=== PATIENT | female | born 1945 | race Caucasian/White ===

== ENCOUNTER 2016-10-20 15:30 | Emergency (ER) | payer OTHER, MEDICARE ==
[2016-10-20 15:44] VITALS: TEMP 98.2; O2SAT 92
--- NOTE | 2016-10-20 15:44 | EDPHY ---
H & P Stated Complaint: WEIRD FEELING IN R SIDE OF HEAD SENT FOR CAT SCAN Time Seen by Provider: 10/20/16 15:43 HPI/ROS: CHIEF COMPLAINT: Intermittent right occipital headache HISTORY OF PRESENT ILLNESS: The patient presents to the ED for evaluation of a 2 day history of a sharp intermittent right occipital headache. The patient denies any history of fall or trauma. The patient is anticoagulated for a hypercoagulable state. The patient complains of a sharp right occipital headache with some radiation to her right retro-orbital area. She denies any history of cervical manipulation. She does have chronic neck pain from DJD. The patient denies localizing pain to the anterior aspect of the neck. She denies vision changes, ataxia, difficulty with speech or other acute neurologic complaints. Patient has no history of rash. REVIEW OF SYSTEMS: A comprehensive 10 point review of systems is otherwise negative aside from elements mentioned in the history of present illness. Source: Patient - Personal History Current Tetanus/Diphtheria Vaccine: Yes - Medical/Surgical History Hx Asthma: Yes Hx Chronic Respiratory Disease: Yes Hx Diabetes: No Hx Cardiac Disease: No Hx Renal Disease: No Hx Cirrhosis: No Hx Alcoholism: No Hx HIV/AIDS: No Hx Splenectomy or Spleen Trauma: No Other PMH: ASTHMA/COPD/PE ANTIPHOSPOLIPID ABTIBODIES - Social History Smoking Status: Never smoked - Physical Exam Exam: General Appearance: Alert, mild discomfort from pain Eyes: Pupils equal and round no pallor or injection ENT, Mouth: Mucous membranes moist Respiratory: There are no retractions, lungs are clear to auscultation Cardiovascular: Regular rate and rhythm Gastrointestinal: Abdomen is soft and nontender, no masses, bowel sounds normal Neurological: A&O, normal motor function, normal sensory exam, normal cranial nerves Skin: Warm and dry, no rashes Musculoskeletal: Neck is supple nontender Extremities: symmetrical, full range of motion Constitutional: Initial Vital Signs Temperature (C) 36.8 C 10/20/16 15:39 Heart Rate 68 10/20/16 15:39 Respiratory Rate 20 10/20/16 15:39 Blood Pressure 130/73 H 10/20/16 15:39 O2 Sat (%) 92 10/20/16 15:39 O2 Delivery Mode Room Air Allergies/Adverse Reactions: lisinopril Allergy (Verified 10/20/16 15:36) Sulfa (Sulfonamide Antibiotics) Allergy (Verified 10/20/16 15:36) trovafloxacin [From Trovan] Allergy (Verified 10/20/16 15:37) Home Medications: Medication Instructions Recorded Amlodipine Besylate 10/20/16 Breo Ellipta 100-25 Mcg INH 10/20/16 Irbesartan 10/20/16 Lasix 10/20/16 Levothyroxine 10/20/16 Ocuvite 10/20/16 Potassium Chlorate 10/20/16 Spiriva Handihaler 10/20/16 Vit D3-Vit K/Berberine/Hops 10/20/16 Medical Decision Making - Diagnostics Imaging: Imaging Impressions Head CT 10/20/16 16:15 Impression: 1. Equivocal evidence of left cerebellar edema. Consider MRI. 2. 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 General information for patients regarding this examination can be found at [facility] [email or web address]. If you have questions or comments about this report, please contact me at (hospital) or [phone] (cell). Head CTA 10/20/16 16:15 Impression: Negative CT angiogram of the brain. 2. CT Angiography of the Neck (With Contrast), 1708 Clinical Indications: Neck pain, Lupus Technique: During IV administration of 85 mL of Isovue-370 intravenously, helical multidetector data acquisition was obtained from the upper thorax cephalad through the skull base. The thinly collimated data were manipulated in multiple projections on the 3D computer workstation by the radiologist. Dose reduction techniques were utilized. Findings: The common carotid arteries, carotid bifurcations and internal carotid arteries are widely patent. There is nonflow limiting calcified plaque in the right carotid bifurcation. Both internal carotid arteries are mildly tortuous. Both vertebral arteries are open and have a normal basilar artery. No evidence of occlusion, hemodynamically significant stenosis, dissection or ulceration. There is severe bilateral upper lung zone emphysema. There is a large calcified granuloma in the posterior left upper lobe. There is osteoarthritis in the spine including the anterior C1-C2 articulation, the left C1-C2 facet joints and disk spaces between C3 and C7. There is mild spondylolisthesis at C7-T1. Axial images there is prominent left-sided cervical spinal stenosis at C4-C5 and moderate central canal stenosis at C5-C6 related to posterior osteophyte formation. Impression: 1. Normal MRA of the neck. 2. Multilevel cervical spondylosis with the worst spinal stenosis at C4-C5. Final concordant results discussed with Dr. Wilberto Mohamud at 5:46 PM. Note: All stenoses are calculated using NASCET Criteria. General information for patients regarding this examination can be found at [email or web address]. If you have questions or comments about this report, please contact me at (hospital) or [phone] (cell). Neck CTA 10/20/16 16:15 Impression: Negative CT angiogram of the brain. 2. CT Angiography of the Neck (With Contrast), 1708 Clinical Indications: Neck pain, Lupus Technique: During IV administration of 85 mL of Isovue-370 intravenously, helical multidetector data acquisition was obtained from the upper thorax cephalad through the skull base. The thinly collimated data were manipulated in multiple projections on the 3D computer workstation by the radiologist. Dose reduction techniques were utilized. Findings: The common carotid arteries, carotid bifurcations and internal carotid arteries are widely patent. There is nonflow limiting calcified plaque in the right carotid bifurcation. Both internal carotid arteries are mildly tortuous. Both vertebral arteries are open and have a normal basilar artery. No evidence of occlusion, hemodynamically significant stenosis, dissection or ulceration. There is severe bilateral upper lung zone emphysema. There is a large calcified granuloma in the posterior left upper lobe. There is osteoarthritis in the spine including the anterior C1-C2 articulation, the left C1-C2 facet joints and disk spaces between C3 and C7. There is mild spondylolisthesis at C7-T1. Axial images there is prominent left-sided cervical spinal stenosis at C4-C5 and moderate central canal stenosis at C5-C6 related to posterior osteophyte formation. Impression: 1. Normal MRA of the neck. 2. Multilevel cervical spondylosis with the worst spinal stenosis at C4-C5. Final concordant results discussed with Dr. Wilberto Mohamud at 5:46 PM. Note: All stenoses are calculated using NASCET Criteria. General information for patients regarding this examination can be found at [employer]. If you have questions or comments about this report, please contact me at (hospital) or [phone] (cell). ED Course/Re-evaluation: The patient had an IV established. I did verify she has a normal renal function with a creatinine of 0.9. The patient did have an INR of 3.1 checked earlier today. Given the complaints today, a CT and CTA of the head neck have been ordered to evaluate for both intracranial hemorrhage and aneurysmal source of bleeding. Fortunately the results of the CT demonstrate no evidence of intracranial hemorrhage. Her CT angiogram demonstrates no evidence of dissection or stenosis. At this point time the etiology of her headache is uncertain, I doubt subarachnoid hemorrhages a presentation today. She is currently asymptomatic. Given the fact she is anticoagulated I feel the risk benefit of lumbar puncture is not indicated given her negative CT angiograms. The patient will be discharged home she is referred to our on-call neurologist for further evaluation of her symptoms. It is certainly possible she is having a neuropathic component of pain. I see no evidence of zoster at this point time. Clinically the patient has no evidence of meningitis. Differential Diagnosis: Differential diagnosis considered includes intracranial hemorrhage, occipital neuralgia, carotid artery dissection, vertebral dissection, subarachnoid hemorrhage, [employer] tumor, zoster Departure - Departure Disposition: Home, Routine, Self-Care Clinical Impression: Acute headache Condition: Good Instructions: Acute Headache (ED) Additional Instructions: 1. Tylenol and ibuprofen as needed for pain. 2. Return to the ED for markedly worsening symptoms or other concerns. 3. Please follow up with a neurologist you have been referred to for any ongoing mild symptoms. Referrals: ROBERT SANCHEZ [Other] - As per Instructions Geoffrey Hughes DO [Medical Doctor] - As per Instructions
[2016-10-20] MEDS ORDERED: IOPAMIDOL (ISOVUE 370) 100 ML BTL IV ONE (16:20)
[2016-10-20 18:19] VITALS: BP 138/85; PULSE 65; RESP 16
== END 2016-10-20 18:17 | disposition home or self-care (01) ==
DX: R51 Headache (principal); J45.909 Unspecified asthma, uncomplicated
CPT/HCPCS: 70450; 70496; 70498; 99285; Q9967; 82947-QW